=== PATIENT | male | born 1975 | race Caucasian/White ===

== ENCOUNTER 2021-11-21 21:28 | Emergency (ER) | payer MEDICAID ==
[~2021-11-21] VITALS: Ht 180.3 cm; Wt 91.0 kg
[2021-11-21 21:37] VITALS: BP 141/106
== END 2021-11-22 00:20 | disposition home or self-care (01) ==
LOC: ER 21:28
DX: S80.811A Abrasion, right lower leg, initial encounter (principal); X58.XXXA Exposure to other specified factors, initial encounter; Y93.89 Activity, other specified; Y92.89 Other specified places as the place of occurrence of the external cause; Y99.8 Other external cause status; F32.9 Major depressive disorder, single episode, unspecified; F10.129 Alcohol abuse with intoxication, unspecified; Y90.0 Blood alcohol level of less than 20 mg/100 ml
CPT/HCPCS: 99283